=== PATIENT | male | born 1945 | race Caucasian/White ===

== ENCOUNTER 2017-12-05 17:53 | Inpatient (IN) | payer MEDICARE, OTHER ==
[2017-12-05 18:42] LABS: ADD MAN DIFF? NO
[2017-12-05 18:44] LABS: WHITE BLOOD COUNT 13.3 10^3/ul (4.8-10.8)
[2017-12-05 18:44] LABS: BASOPHILS % 0.3 % (0.0-2.0); EOSINOPHILS % 0.2 % (0.0-7.0); HEMATOCRIT 48.5 % (42.0-52.0); HEMOGLOBIN 15.9 g/dl (14.0-18.0); LYMPHOCYTES % 14.8 % (15.0-51.0); MEAN CORPUSCULAR HEMOGLOBIN 29.6 pg (29.0-33.0); MEAN CORPUSCULAR HGB CONC 32.8 g/dl (32.0-37.0); MEAN CORPUSCULAR VOLUME 90.3 fl (82.0-101.0); MEAN PLATELET VOLUME 10.6 fl (7.4-10.4); MONOCYTE # 0.5 10^3/ul (0.3-0.9); MONOCYTES % 3.8 % (0.0-11.0); NEUTROPHIL # 10.7 10^3/ul (1.6-7.5); NEUTROPHILS % 80.5 % (39.0-77.0); PLATELET COUNT 197 10^3/UL (140-415); RED BLOOD COUNT 5.37 10^6/ul (4.70-6.10); RED CELL DISTRIBUTION WIDTH 14.3 % (11.5-14.5)
[2017-12-05 19:04] LABS: INR 1.13; PROTIME 14.7 Sec (11.9-14.9); PT RATIO 1.1
[2017-12-05 19:05] LABS: PARTIAL THROMBOPLASTIN TIME 28.7 Sec (25.0-35.0)
[2017-12-05 19:08] LABS: ALANINE AMINOTRANSFERASE 30 IU/L (13-69); ALBUMIN 4.2 g/dl (3.3-4.9); ALBUMIN/GLOBULIN RATIO 1.07; ALKALINE PHOSPHATASE 71 IU/L (42-121); ANION GAP 16 (8-16); ASPARTATE AMINO TRANSFERASE 27 IU/L (15-46); BILIRUBIN,INDIRECT 1.4 mg/dl (0-1.1); BILIRUBIN,TOTAL 1.4 mg/dl (0.2-1.3); BLOOD UREA NITROGEN 21 mg/dl (7-20); CALCIUM 9.4 mg/dl (8.4-10.2); CARBON DIOXIDE 27 mmol/L (21-31); CHLORIDE 104 mmol/L (97-110); CREATININE 0.98 mg/dl (0.61-1.24); GLUCOSE 183 mg/dl (70-220); POTASSIUM 4.4 mmol/L (3.5-5.1); SODIUM 143 mmol/L (135-144); TOTAL PROTEIN 8.1 g/dl (6.1-8.1)
[2017-12-05 19:11] LABS: LACTIC ACID 2.6 mmol/L (0.5-2.0)
[2017-12-05 19:20] LABS: TROPONIN-I 0.102 ng/ml (0.00-0.12)
[2017-12-05 19:34] LABS: ADD UMIC YES; UR ASCORBIC ACID NEGATIVE (NEGATIVE); UR BACTERIA FEW /HPF (NONE SEEN); UR BILIRUBIN (Dip) NEGATIVE (NEGATIVE); UR BLOOD (Dip) 1+ mg/dL (NEGATIVE); UR CLARITY CLEAR (CLEAR); UR COLOR YELLOW (YELLOW); UR GLUCOSE (Dip) 1+ mg/dL (NEGATIVE); UR KETONES (Dip) NEGATIVE (NEGATIVE); UR LEUKOCYTE ESTERASE (Dip) TRACE Leu/ul (NEGATIVE); UR NITRITE (Dip) POSITIVE (NEGATIVE); UR RBC 13 /HPF (0-5); UR SPECIFIC GRAVITY (Dip) 1.014 (1.003-1.030); UR TOTAL PROTEIN (Dip) 3+ mg/dl (NEGATIVE); UR UROBILINOGEN (Dip) NEGATIVE (NEGATIVE); UR WBC 19 /HPF (0-5)
[2017-12-05] MEDS: SODIUM CHLORIDE 0.9% 1L BAG IV* (19:47)
[2017-12-05] MEDS: CEFEPIME 1GM/50 ML (PMX) 50 ML IVPB (19:49)
[2017-12-05 19:57] LABS: LACTIC ACID 2.8 mmol/L (0.5-2.0)
[2017-12-05] MEDS: VANCOMYCIN 1 GM (PMX) 250 ML IVPB (20:20)
[2017-12-05] MEDS ORDERED: ONDANSETRON 4 MG INJ IV (20:30)
[2017-12-05] MEDS ORDERED: GLUCOSE GEL 15 GRAM TUBE PO ×2 (22:00)
[2017-12-05] MEDS ORDERED: GLUCOSE GEL 15 GRAM TUBE BUCCAL (22:00)
[2017-12-05] MEDS ORDERED: MEROPENEM 1 GM/50ML(PMX) 50 ML IVPB (22:00)
[2017-12-05] MEDS ORDERED: GLUCAGON 1 MG INJ IM (22:00)
[2017-12-05] MEDS ORDERED: DEXTROSE 50% 50 ML SYRINGE IV ×2 (22:00)
[2017-12-05 22:50] LABS: LACTIC ACID 2.6 mmol/L (0.5-2.0)
[2017-12-05] MEDS: HYPOGLYCEMIA PROTOCOL when Glucose is <70 mg/dL or symptomatic <90 mg/dL XX (23:53)
[2017-12-05] MEDS: Discontinue current oral sulfonylureas (glyburide, glipizide, and/or glimepiride) prior to XX (23:53)
[2017-12-05] MEDS: INSULIN ASPART [NOVOLOG] 3 ML PEN SC (23:58)
[2017-12-05] MEDS: SOD CHLORIDE 0.9% 1,000 ML IV (23:59)
[2017-12-06] MEDS: ACCU-CHEK XX (02:00)
[2017-12-06] MEDS ORDERED: MEROPENEM 1 GM/50ML(PMX) 50 ML IVPB (06:00)
[2017-12-06] MEDS: MEROPENEM 1 GM/50ML(PMX) 50 ML IVPB ×3 (06:43→21:14)
[2017-12-06] MEDS: INSULIN ASPART [NOVOLOG] 3 ML PEN SC ×4 (08:00→21:00)
[2017-12-06] MEDS: SOD CHLORIDE 0.9% 1,000 ML IV ×2 (09:50→21:21)
[2017-12-06] MEDS: ACETAMINOPHEN 325 MG TAB PO (11:32)
[2017-12-06] MEDS ORDERED: ALBUTEROL 0.083% (NEB) 2.5 MG/3 ML AMP NEB (13:00)
[2017-12-06] MEDS ORDERED: ACETAMINOPHEN 325 MG TAB PO (13:00)
[2017-12-06] MEDS ORDERED: ALBUTEROL/IPRATROPIUM (NEB) 3 ML AMP HHN (13:00)
[2017-12-06] MEDS: LEVETIRACETAM 500 MG TAB PO (13:57)
[2017-12-06] MEDS: INSULIN DETEMIR [LEVEMIR] 3ML CART SC (15:03)
[2017-12-06] MEDS: RIVAROXABAN 20 MG TABLET PO (17:34)
[2017-12-06 20:07] LABS: ADD MAN DIFF? NO
[2017-12-06 20:15] LABS: BASOPHILS % 0.4 % (0.0-2.0); EOSINOPHILS # 0.1 10^3/ul (0.0-0.5); EOSINOPHILS % 1.2 % (0.0-7.0); HEMOGLOBIN 12.4 g/dl (14.0-18.0); LYMPHOCYTES % 30.7 % (15.0-51.0); MEAN CORPUSCULAR HEMOGLOBIN 29.7 pg (29.0-33.0); MEAN CORPUSCULAR HGB CONC 32.6 g/dl (32.0-37.0); MEAN CORPUSCULAR VOLUME 91.1 fl (82.0-101.0); MEAN PLATELET VOLUME 10.8 fl (7.4-10.4); MONOCYTE # 0.9 10^3/ul (0.3-0.9); MONOCYTES % 9.3 % (0.0-11.0); NEUTROPHIL # 5.7 10^3/ul (1.6-7.5); NEUTROPHILS % 58.2 % (39.0-77.0); PLATELET COUNT 141 10^3/UL (140-415); RED BLOOD COUNT 4.17 10^6/ul (4.70-6.10); RED CELL DISTRIBUTION WIDTH 14.2 % (11.5-14.5)
[2017-12-06 20:15] LABS: WHITE BLOOD COUNT 9.8 10^3/ul (4.8-10.8)
[2017-12-06 20:33] LABS: ANION GAP 11 (8-16); BLOOD UREA NITROGEN 22 mg/dl (7-20); CALCIUM 8.3 mg/dl (8.4-10.2); CARBON DIOXIDE 27 mmol/L (21-31); CHLORIDE 110 mmol/L (97-110); CREATININE 0.92 mg/dl (0.61-1.24); GLUCOSE 144 mg/dl (70-220); SODIUM 144 mmol/L (135-144)
[2017-12-06] MEDS ORDERED: NON-FORMULARY/PATIENT OWN MED (Lactobacillus Acidophilus* (Lactinex*) 1 TAB) PO (21:00)
[2017-12-06] MEDS: ATORVASTATIN 20 MG TAB PO (21:13)
[2017-12-06] MEDS: LACTOBACILLUS RHAMNOSUS CAP PO (21:14)
[2017-12-07] MEDS: LEVETIRACETAM 500 MG TAB PO ×2 (00:36→13:00)
[2017-12-07] MEDS: INSULIN DETEMIR [LEVEMIR] 3ML CART SC ×2 (00:40→12:13)
[2017-12-07] MEDS: ACCU-CHEK XX (02:00)
[2017-12-07] MEDS: MEROPENEM 1 GM/50ML(PMX) 50 ML IVPB ×2 (05:37→15:29)
[2017-12-07] MEDS: ACETAMINOPHEN 325 MG TAB PO (05:37)
[2017-12-07] MEDS: INSULIN ASPART [NOVOLOG] 3 ML PEN SC ×4 (08:00→20:44)
[2017-12-07] MEDS ORDERED: BISACODYL 5 MG RECTAL (09:00)
[2017-12-07] MEDS ORDERED: BISACODYL 10 MG SUPP PR (09:00)
[2017-12-07] MEDS: CHOLECALCIFEROL 1,000 UNIT TAB PO (09:23)
[2017-12-07] MEDS: metFORMIN 500 MG TAB PO (09:23)
[2017-12-07] MEDS: LACTOBACILLUS RHAMNOSUS CAP PO ×2 (09:23→20:44)
[2017-12-07] MEDS: BENAZEPRIL 10 MG TAB PO (09:23)
[2017-12-07] MEDS: SOD CHLORIDE 0.9% 1,000 ML IV ×2 (12:12→17:30)
[2017-12-07] MEDS: RIVAROXABAN 20 MG TABLET PO (17:30)
[2017-12-07 18:31] LABS: ADD MAN DIFF? NO
[2017-12-07 18:33] LABS: WHITE BLOOD COUNT 9.2 10^3/ul (4.8-10.8)
[2017-12-07 18:33] LABS: BASOPHILS % 0.4 % (0.0-2.0); EOSINOPHILS # 0.2 10^3/ul (0.0-0.5); EOSINOPHILS % 1.7 % (0.0-7.0); HEMATOCRIT 44.8 % (42.0-52.0); HEMOGLOBIN 14.5 g/dl (14.0-18.0); LYMPHOCYTES % 32.4 % (15.0-51.0); MEAN CORPUSCULAR HEMOGLOBIN 29.5 pg (29.0-33.0); MEAN CORPUSCULAR HGB CONC 32.4 g/dl (32.0-37.0); MEAN CORPUSCULAR VOLUME 91.1 fl (82.0-101.0); MEAN PLATELET VOLUME 10.6 fl (7.4-10.4); MONOCYTE # 0.9 10^3/ul (0.3-0.9); MONOCYTES % 9.5 % (0.0-11.0); NEUTROPHIL # 5.2 10^3/ul (1.6-7.5); NEUTROPHILS % 55.8 % (39.0-77.0); PLATELET COUNT 122 10^3/UL (140-415); POSITIVE DIFF @See below; RED BLOOD COUNT 4.92 10^6/ul (4.70-6.10); RED CELL DISTRIBUTION WIDTH 13.9 % (11.5-14.5)
[2017-12-07 19:18] LABS: ANION GAP 15 (8-16)
[2017-12-07 19:19] LABS: BLOOD UREA NITROGEN 21 mg/dl (7-20); CALCIUM 8.6 mg/dl (8.4-10.2); CARBON DIOXIDE 25 mmol/L (21-31); CHLORIDE 106 mmol/L (97-110); CREATININE 0.88 mg/dl (0.61-1.24); GLUCOSE 96 mg/dl (70-220); SODIUM 142 mmol/L (135-144)
[2017-12-07] MEDS: ATORVASTATIN 20 MG TAB PO (20:44)
[2017-12-07] MEDS: CEFAZOLIN 1 GM/50 ML (PMX) 50 ML IVPB (21:55)
[2017-12-08] MEDS: LEVETIRACETAM 500 MG TAB PO ×2 (00:52→12:07)
[2017-12-08] MEDS: ACCU-CHEK XX (00:53)
[2017-12-08] MEDS: INSULIN DETEMIR [LEVEMIR] 3ML CART SC ×2 (00:53→12:14)
[2017-12-08] MEDS: ACETAMINOPHEN 325 MG TAB PO (04:28)
[2017-12-08] MEDS: CEFAZOLIN 1 GM/50 ML (PMX) 50 ML IVPB ×3 (05:44→22:34)
[2017-12-08] MEDS: INSULIN ASPART [NOVOLOG] 3 ML PEN SC ×4 (07:59→20:13)
[2017-12-08] MEDS: LACTOBACILLUS RHAMNOSUS CAP PO ×2 (08:59→20:14)
[2017-12-08] MEDS: metFORMIN 500 MG TAB PO (08:59)
[2017-12-08] MEDS: CHOLECALCIFEROL 1,000 UNIT TAB PO (08:59)
[2017-12-08] MEDS: BENAZEPRIL 10 MG TAB PO (09:00)
[2017-12-08] MEDS: SOD CHLORIDE 0.9% 1,000 ML IV (13:55)
[2017-12-08] MEDS: RIVAROXABAN 20 MG TABLET PO (18:24)
[2017-12-08] MEDS: MAGNESIUM HYDROXIDE 30ML CUP PO (18:24)
[2017-12-08] MEDS: ATORVASTATIN 20 MG TAB PO (20:12)
[2017-12-09] MEDS: ACETAMINOPHEN 325 MG TAB PO (00:36)
[2017-12-09] MEDS: LEVETIRACETAM 500 MG TAB PO ×2 (00:36→13:05)
[2017-12-09] MEDS: ACCU-CHEK XX (00:37)
[2017-12-09] MEDS: CEFAZOLIN 1 GM/50 ML (PMX) 50 ML IVPB ×3 (06:18→22:14)
[2017-12-09] MEDS: BENAZEPRIL 10 MG TAB PO (06:35)
[2017-12-09] MEDS: INSULIN ASPART [NOVOLOG] 3 ML PEN SC ×4 (08:00→21:00)
[2017-12-09] MEDS: metFORMIN 500 MG TAB PO (08:22)
[2017-12-09] MEDS: AMLODIPINE 5 MG TAB PO (08:22)
[2017-12-09] MEDS: LACTOBACILLUS RHAMNOSUS CAP PO ×2 (09:44→22:13)
[2017-12-09] MEDS: CHOLECALCIFEROL 1,000 UNIT TAB PO (09:44)
[2017-12-09] MEDS: RIVAROXABAN 20 MG TABLET PO (17:26)
[2017-12-09] MEDS: SOD CHLORIDE 0.9% 1,000 ML IV (17:26)
[2017-12-09] MEDS: ATORVASTATIN 20 MG TAB PO (22:13)
[2017-12-10] MEDS: LEVETIRACETAM 500 MG TAB PO ×2 (01:28→12:18)
[2017-12-10] MEDS: ACCU-CHEK XX (01:34)
[2017-12-10] MEDS: CEFAZOLIN 1 GM/50 ML (PMX) 50 ML IVPB ×3 (05:34→20:11)
[2017-12-10] MEDS: INSULIN ASPART [NOVOLOG] 3 ML PEN SC ×4 (08:00→20:03)
[2017-12-10] MEDS: AMLODIPINE 5 MG TAB PO (08:42)
[2017-12-10] MEDS: LACTOBACILLUS RHAMNOSUS CAP PO ×2 (08:42→20:03)
[2017-12-10] MEDS: CHOLECALCIFEROL 1,000 UNIT TAB PO (08:42)
[2017-12-10] MEDS: BENAZEPRIL 10 MG TAB PO (08:42)
[2017-12-10] MEDS: metFORMIN 500 MG TAB PO (08:44)
[2017-12-10] MEDS: SOD CHLORIDE 0.9% 1,000 ML IV (14:01)
[2017-12-10] MEDS: RIVAROXABAN 20 MG TABLET PO (18:07)
[2017-12-10] MEDS: ATORVASTATIN 20 MG TAB PO (20:03)
[2017-12-11] MEDS: ACCU-CHEK XX (01:54)
[2017-12-11] MEDS: LEVETIRACETAM 500 MG TAB PO ×2 (01:57→13:41)
[2017-12-11] MEDS: CEFAZOLIN 1 GM/50 ML (PMX) 50 ML IVPB ×2 (04:54→16:33)
[2017-12-11] MEDS: SOD CHLORIDE 0.9% 1,000 ML IV (04:54)
[2017-12-11] MEDS: INSULIN ASPART [NOVOLOG] 3 ML PEN SC ×3 (07:56→17:28)
[2017-12-11] MEDS: BENAZEPRIL 10 MG TAB PO (08:29)
[2017-12-11] MEDS: LACTOBACILLUS RHAMNOSUS CAP PO (08:29)
[2017-12-11] MEDS: AMLODIPINE 5 MG TAB PO (08:29)
[2017-12-11] MEDS: metFORMIN 500 MG TAB PO (08:30)
[2017-12-11] MEDS: CHOLECALCIFEROL 1,000 UNIT TAB PO (08:30)
[2017-12-11] MEDS: INFLUENZA VIRUS VACCINE 0.5 ML (DISPENSING) IM* (16:35)
[2017-12-11] MEDS: RIVAROXABAN 20 MG TABLET PO (17:31)
== END 2017-12-11 18:44 | DRG 871 ==
LOC: E/R 17:53 → MS4 20:04
PROC: 3E0234Z Introduction of Serum, Toxoid and Vaccine into Muscle, Percutaneous Approach (ICD-10-PCS; principal; 2017-12-11)
DX: A41.51 Sepsis due to Escherichia coli [E. coli] (principal); G93.40 Encephalopathy, unspecified; I69.351 Hemiplegia and hemiparesis following cerebral infarction affecting right dominant side; N30.00 Acute cystitis without hematuria; E87.2 Acidosis; I48.0 Paroxysmal atrial fibrillation; I10 Essential (primary) hypertension; E78.5 Hyperlipidemia, unspecified; E11.9 Type 2 diabetes mellitus without complications; I25.10 Atherosclerotic heart disease of native coronary artery without angina pectoris; G30.9 Alzheimer's disease, unspecified; F02.80 Dementia in other diseases classified elsewhere, unspecified severity, without behavioral disturbance, psychotic disturbance, mood disturbance, and anxiety; J44.9 Chronic obstructive pulmonary disease, unspecified; E86.0 Dehydration; Z79.01 Long term (current) use of anticoagulants; Z87.891 Personal history of nicotine dependence; Z79.4 Long term (current) use of insulin; Z95.1 Presence of aortocoronary bypass graft; Z23 Encounter for immunization
CPT/HCPCS: 36415; 71045; 80048; 80053; 81001; 82962; 83605; 84484; 85025; 85610; 85730; 87040; 87081; 87086; 87400; 90686; 93005; 96374; 96375; 99291-25